=== PATIENT | female | born 1975 | race Caucasian/White ===

== ENCOUNTER 2017-10-15 13:51 | Emergency (ER) | payer BC ==
[2017-10-15 13:56] VITALS: BP 135/84; PULSE 95; RESP 18; TEMP 98.4
--- NOTE | 2017-10-15 14:04 | ED ---
Animal Bite HPI - General Chief Complaint: Animal Bite Stated Complaint: Dog bite Time Seen by Provider: 10/15/17 14:01 Source: patient, RN notes reviewed Mode of arrival: ambulatory Limitations: no limitations - History of Present Illness Initial Comments: This is a 42-year-old female with no past medical history who presents today for chief complaint of dog bites. Patient states that around 1:40 PM this afternoon she was going over to her son's house where she has never been before since [place] [facility], when she knocked and then entered his home she was attacked by his 2 pupils that she had never met before. One bit her on her back right breast and the other bit the back of her skull. Both of her sons were there at the moment they were able to quickly get the dogs off of her. Patient denies falling hitting head, losing consciousness or injury to any other extremity. Patient is not sure of her last tetanus. Patient's son states that the dog had all their vaccinations. Patient has 2 wounds on the scalp, and a laceration over the right breast. Patient admits to pain in the right breast, denying pain the scalp, headache, dizziness, muscle weakness, loss of sensation or any other symptoms. Patient denies any recent fever, chills, shortness of breath, chest pain, back pain, abdominal pain, nausea or vomiting, numbness or tingling, dysuria or hematuria, constipation or diarrhea, headaches or visual changes, or any other complaints. Patient denies any antibiotic ALLERGIES. - Related Data Previous Rx's Medication Instructions Recorded Amoxicillin/Potassium Clav 1 tab PO Q12HR 7 Days #14 tab 10/15/17 [Augmentin 875-125 Tablet] Ibuprofen [Motrin] 800 mg PO Q8H PRN 5 Days #15 tab 10/15/17 Allergies Allergy/AdvReac Type Severity Reaction Status Date / Time No Known Allergies Allergy Verified 10/15/17 13:56 Review of Systems ROS Statement: Those systems with pertinent positive or pertinent negative responses have been documented in the HPI. ROS Other: All systems not noted in ROS Statement are negative. Constitutional: Denies: fever, chills Eyes: Denies: eye pain, vision change ENT: Denies: hearing loss Respiratory: Denies: cough, dyspnea Cardiovascular: Denies: chest pain, palpitations Gastrointestinal: Denies: abdominal pain, nausea, vomiting, diarrhea, constipation Genitourinary: Denies: urgency, dysuria Musculoskeletal: Denies: back pain Skin: Reports: as per HPI Neurological: Denies: headache, weakness, numbness, paresthesias, confusion, abnormal gait, vertigo Past Medical History Past Medical History: No Reported History History of Any Multi-Drug Resistant Organisms: None Reported Past Surgical History: No Surgical Hx Reported Past Psychological History: No Psychological Hx Reported Smoking Status: Never smoker Past Alcohol Use History: None Reported Past Drug Use History: None Reported General Exam - General Exam Comments Initial Comments: General: The patient is awake and alert, in no distress, and does not appear acutely ill. Eye: Pupils are equal, round and reactive to light, extra-ocular movements are intact. No nystagmus. There is normal conjunctiva bilaterally. No signs of icterus. Ears, nose, mouth and throat: There are moist mucous membranes and no oral lesions. Neck: The neck is supple, there is no tenderness or JVD. Cardiovascular: There is a regular rate and rhythm. No murmur, rub or gallop is appreciated. Respiratory: Lungs are clear to auscultation, respirations are non-labored, breath sounds are equal. No wheezes, stridor, rales, or rhonchi. Neurological: A&O x 3. CN II-XII intact, There are no obvious motor or sensory deficits. Coordination appears grossly intact. Speech is normal. Skin: Skin is warm and dry and no rashes. There is a 1/4cm puncture wound to the midline parietal area of scalp, no evidence of crepitus or pain with deep palpation. No evidence of FB, no active bleeding. There is a flap laceration ~ 1cm to the right parietal region of scalp, no FB, crepitus or no active bleeding. Superficial abrasions with a 1cm laceration/possible puncture exposing adipose tissue of the right breast. No evidence of FB, no active bleeding. Psychiatric: Cooperative, appropriate mood & affect, normal judgment. Limitations: no limitations Course Vital Signs 10/15/17 13:53 Temperature 98.4 F Pulse Rate 95 Respiratory 18 Rate Blood Pressure 135/84 O2 Sat by Pulse 99 Oximetry Procedures - Laceration Laceration #1 Consent Obtained: verbal consent Time Out Performed: Yes Indication: laceration Site: other (right breast) Size (cm): 3 Description: flap, irregular Depth: simple, single layer Anesthetic Used: lidocaine 1% Anesthesia Technique: local infiltration Amount (mls): 6 Pre-repair: wound explored, irrigated extensively, deep structures intact Type of Sutures: nylon Size of Sutures: 4-0 Number of Sutures: 5 Technique: simple, interrupted Patient Tolerated Procedure: well, no complications Laceration #2 Consent Obtained: verbal consent Time Out Performed: Yes Site: other (breast) Size (cm): 1 Description: linear Depth: simple, single layer Anesthetic Used: lidocaine 1% Anesthesia Technique: local infiltration Amount (mls): 2 Pre-repair: wound explored, irrigated extensively, deep structures intact Type of Sutures: nylon Size of Sutures: 4-0 Number of Sutures: 2 Technique: simple, interrupted Patient Tolerated Procedure: well, no complications Laceration #3 Consent Obtained: verbal consent Time Out Performed: Yes Indication: laceration Site: scalp Size (cm): 1 Description: avulsion Depth: simple, single layer Anesthetic Used: lidocaine 1% Anesthesia Technique: local infiltration Amount (mls): 2 Pre-repair: wound explored, irrigated extensively, deep structures intact Type of Sutures: nylon Size of Sutures: 4-0 Number of Sutures: 1 Technique: simple, interrupted Patient Tolerated Procedure: well, no complications Medical Decision Making - Medical Decision Making Pt received TDaP and 800mg ibuprofen for pain mgmt. Whole scalp examined for lacerations 2 total. Flap of right side of scalp loosely approximated with 1 4.0 nylon suture after extensively exploration and irrigation. Breast lacerations #1 irregulary shaped with multple areas of flap and #2 linear ~1cm approximated wound edges with 8 total 4.0 sutures after extensive irrigation and exploration. Pt tolerated well. The second wound on scalp was a small, superficial puncture, I felt at this time that secondary healing is perferrable given size and type of injury to reduce risk of infection from closure of puncture wound. Pt given augment and ibuprofen 800 upon discharge instructed to follow-up with her primary care 2-3 days for a wound check. Patient is also instructed to return to primary care provider in 7-10 days for suture removal, patient was educated the signs and symptoms of infection and told to return to her primary care or emergency department if these arise. Patient agreed with plan. Case is discussed in detail with Dr Israel who agrees with impression and plan. Pt discharged in stable condition. Disposition Clinical Impression: Dog bite, Dog bite of scalp Disposition: HOME SELF-CARE Condition: Good Instructions: Animal Bite (ED) Additional Instructions: .Please use medication as discussed. Please follow-up with family doctor in the next 7-10 days for suture removal. Please follow-up with primary care in 2- 3 days for wound assessment. Please return to emergency room if the symptoms increase or worsen or for any other concerns as discussed. Prescriptions: Amoxicillin/Potassium Clav [Augmentin 875-125 Tablet] 1 tab PO Q12HR 7 Days #14 tab Ibuprofen [Motrin] 800 mg PO Q8H PRN 5 Days #15 tab PRN Reason: Pain Is patient prescribed a controlled substance at d/c from ED?: No Referrals: None,Stated [Primary Care Provider] - 1-2 days Time of Disposition: 15:29
[2017-10-15] MEDS ORDERED: DIPH,PERTUS(ACELL)TETVAC-LF 0.5 ML VIAL IM ONE (14:11)
[2017-10-15] MEDS ORDERED: LIDOCAINE 1% INJ 10MG/ML (20 ML MDV) SQ ONE (14:23)
[2017-10-15] MEDS ORDERED: IBUPROFEN 800 MG TAB PO STA (14:24)
== END 2017-10-15 15:41 | disposition home or self-care (01) ==
LOC: EC 13:51
DX: S01.01XA Laceration without foreign body of scalp, initial encounter (principal); S21.011A Laceration without foreign body of right breast, initial encounter; Z23 Encounter for immunization; W54.0XXA Bitten by dog, initial encounter; Y93.89 Activity, other specified; Y92.009 Unspecified place in unspecified non-institutional (private) residence as the place of occurrence of the external cause
CPT/HCPCS: 90715; 99283; 12002; 90471; J2001